=== PATIENT | female | born 1945 | race Caucasian/White ===

== ENCOUNTER 2020-11-27 15:04 | Inpatient (IN) | payer MEDICARE ==
[2020-11-27] VITALS (8 sets, daily range): BP systolic 96–117; BP diastolic 58–75
[~2020-11-27] VITALS: Ht 154.9 cm; Wt 68.1 kg
[2020-11-27] MEDS ORDERED: SODIUM CHLORIDE 0.9% 500ML 500 ML IV ONE (15:45)
[2020-11-27] MEDS ORDERED: ATROPINE SULFATE 1 MG/ML VIAL ONE (15:47)
[2020-11-27 16:40] LABS: BASOPHILS # (AUTO) 0.1 (0.0-0.1); BASOPHILS % 0.8 % (0.0-1.0); EOSINOPHILS % 0.1 % (0.0-6.0); HEMATOCRIT 29.3 % (34.2-44.1); HEMOGLOBIN 9.1 g/dL (12.0-16.0); LYMPHOCYTES % 20.6 % (18.0-39.1); MEAN CORPUSCULAR HEMOGLOBIN 27.3 pg (28-32); MEAN CORPUSCULAR HGB CONC 31.1 g/dL (31-35); MONOCYTES % 10.8 % (4.4-11.3); NEUTROPHILS # (AUTO) 6.5 (2.1-6.9); NEUTROPHILS % 67.3 % (38.7-80.0); PLATELET COUNT 264 x10e3/uL (140-360); RED BLOOD COUNT 3.33 x10e6/uL (3.6-5.1); RED CELL DISTRIBUTION WIDTH 15.3 % (11.7-14.4)
[2020-11-27 16:50] LABS: INR 1.24; PROTHROMBIN TIME 16.4 seconds (11.9-14.5)
[2020-11-27 16:51] LABS: PARTIAL THROMBOPLASTIN TIME 30.2 seconds (23.8-35.5)
[2020-11-27 17:00] LABS: ALBUMIN 3.8 g/dL (3.5-5.0); ALBUMIN/GLOBULIN RATIO 1.1 (0.8-2.0); ANION GAP 17.5 mmol/L (8-16); CALCIUM 9.3 mg/dL (8.4-10.2); CREATININE, SERUM 1.83 mg/dL (0.57-1.11); MAGNESIUM 2.1 MG/DL (1.3-2.1); POTASSIUM 4.5 mmol/L (3.5-5.1)
[2020-11-27] MEDS: FAMOTIDINE 20 MG/2 ML VIAL IV SCH ×2 (17:00→21:14)
[2020-11-27] MEDS ORDERED: ONDANSETRON HCL INJ 2MG/ML 2ML 2 MG/ML VIAL IV PRN (17:00)
[2020-11-27 17:20] LABS: CREATINE KINASE MB 1.5 ng/mL (0-5.0); THYROID STIMULATING HORMONE 3.666 uIU/mL (0.350-4.940)
[2020-11-27] MEDS ORDERED: ATROPINE SULFATE 1 MG/ML VIAL IV PRN (20:15)
[2020-11-27] MEDS ORDERED: ELIQUIS5 MG PO (21:18)
[2020-11-27] MEDS ORDERED: AMIODARONE HCL200 MG PO (21:18)
[2020-11-27] MEDS ORDERED: ATORVASTATIN CA20 MG PO (21:18)
[2020-11-27] MEDS ORDERED: FUROSEMIDE40 MG PO (21:19)
[2020-11-27] MEDS ORDERED: PANTOPRAZOLE SO40 MG PO (21:22)
[2020-11-27] MEDS ORDERED: MAGNESIUM250 MG PO (21:22)
[2020-11-27] MEDS ORDERED: ASPIRIN81 MG PO (21:22)
[2020-11-27] MEDS ORDERED: SPIRONOLACTONE25 MG PO (21:22)
[2020-11-27] MEDS ORDERED: METOPROLOL TART25 MG PO (21:22)
[2020-11-27] MEDS ORDERED: METFORMIN HCL500 MG PO (21:22)
[2020-11-27] MEDS ORDERED: PRESERVISION A1 EACH PO (21:22)
[2020-11-27] MEDS ORDERED: OMEPRAZOLE40 MG PO (21:22)
[2020-11-27] MEDS ORDERED: MELATONIN3 MG PO (21:22)
[2020-11-27 23:24] LABS: CREATINE KINASE MB 2.4 ng/mL (0-5.0)
[2020-11-28] VITALS (26 sets, daily range): BP systolic 86–121; BP diastolic 51–72
[2020-11-28] MEDS ORDERED: HYDROCODONE/APAP 5MG-325MG TAB PO ONE
[2020-11-28 04:48] LABS: BASOPHILS # (AUTO) 0.1 (0.0-0.1); BASOPHILS % 0.8 % (0.0-1.0); EOSINOPHILS % 0.6 % (0.0-6.0); HEMATOCRIT 28.7 % (34.2-44.1); HEMOGLOBIN 9.1 g/dL (12.0-16.0); LYMPHOCYTES # (AUTO) 2.6 (1.0-3.2); LYMPHOCYTES % 35.8 % (18.0-39.1); MEAN CORPUSCULAR HEMOGLOBIN 27.4 pg (28-32); MEAN CORPUSCULAR HGB CONC 31.7 g/dL (31-35); MEAN CORPUSCULAR VOLUME 86.4 fL (81-99); MONOCYTES % 13.8 % (4.4-11.3); NEUTROPHILS # (AUTO) 3.6 (2.1-6.9); NEUTROPHILS % 48.7 % (38.7-80.0); PLATELET COUNT 218 x10e3/uL (140-360); RED BLOOD COUNT 3.32 x10e6/uL (3.6-5.1)
[2020-11-28 05:16] LABS: ALBUMIN 3.6 g/dL (3.5-5.0); ANION GAP 17.5 mmol/L (8-16); CALCIUM 9.2 mg/dL (8.4-10.2); CHOL/HDL RATIO 4.2 (3.0-3.6); CREATININE, SERUM 1.62 mg/dL (0.57-1.11); POTASSIUM 4.5 mmol/L (3.5-5.1)
[2020-11-28] MEDS: FAMOTIDINE 20 MG/2 ML VIAL IV SCH ×3 (06:00→21:00)
[2020-11-28 06:48] LABS: CREATINE KINASE MB 2.7 ng/mL (0-5.0)
[2020-11-28] MEDS ORDERED: FUROSEMIDE INJ 10 MG/ML 4 ML VIAL IV SCH (09:00)
[2020-11-28] MEDS ORDERED: PANTOPRAZOLE SOD 40 MG TABEC PO SCH (09:00)
[2020-11-28] MEDS ORDERED: ATROPINE SULFATE 1 MG/ML VIAL IV ONE (09:20)
[2020-11-28] MEDS: ASPIRIN 81 MG CHEW TAB PO SCH (09:28)
[2020-11-28] MEDS ORDERED: SODIUM CHLORIDE 0.9% 250ML 250 ML IV ONE (13:30)
[2020-11-28] MEDS: INSULIN LISPRO 100 UNIT/1 ML 3ML VIAL SQ SCH (20:49)
[2020-11-28] MEDS: ATORVASTATIN 40 MG TAB PO SCH (21:36)
[2020-11-28] MEDS: MELATONIN 5 MG TABLET PO SCH (21:37)
[2020-11-28] MEDS: ACETAMINOPHEN 325 MG TAB PO PRN (22:55)
[2020-11-29] VITALS (24 sets, daily range): BP systolic 94–128; BP diastolic 56–88
[2020-11-29] MEDS ORDERED: ATROPINE SULFATE 0.1 MG/ML 10ML SYR ONE (01:01)
[2020-11-29 06:33] LABS: BASOPHILS % 0.6 % (0.0-1.0); EOSINOPHILS # (AUTO) 0.2 (0.0-0.4); EOSINOPHILS % 2.1 % (0.0-6.0); HEMATOCRIT 30.3 % (34.2-44.1); HEMOGLOBIN 9.3 g/dL (12.0-16.0); LYMPHOCYTES # (AUTO) 1.7 (1.0-3.2); LYMPHOCYTES % 24.7 % (18.0-39.1); MEAN CORPUSCULAR HEMOGLOBIN 27.9 pg (28-32); MEAN CORPUSCULAR HGB CONC 30.7 g/dL (31-35); MONOCYTES # (AUTO) 1.1 (0.2-0.8); NEUTROPHILS % 57.3 % (38.7-80.0); PLATELET COUNT 189 x10e3/uL (140-360); RED BLOOD COUNT 3.33 x10e6/uL (3.6-5.1); RED CELL DISTRIBUTION WIDTH 15.1 % (11.7-14.4)
[2020-11-29] MEDS: INSULIN LISPRO 100 UNIT/1 ML 3ML VIAL SQ SCH ×4 (07:30→21:00)
[2020-11-29 07:39] LABS: ALBUMIN 3.5 g/dL (3.5-5.0); ALBUMIN/GLOBULIN RATIO 1.1 (0.8-2.0); ANION GAP 15.2 mmol/L (8-16); CREATININE, SERUM 1.35 mg/dL (0.57-1.11); POTASSIUM 4.2 mmol/L (3.5-5.1)
[2020-11-29] MEDS ORDERED: FENTANYL CITRATE/PF 100MCG/2 ML INJ ONE (08:08)
[2020-11-29] MEDS ORDERED: MIDAZOLAM HCL 2 MG/2 ML VIAL ONE ×2 (08:08→09:35)
[2020-11-29] MEDS ORDERED: HEPARIN SOD (PORCINE) 1000 UNIT/ML 30ML ONE (08:08)
[2020-11-29] MEDS ORDERED: NITROGLYCERIN/D5W 200 MCG/ML 250 ML ONE (08:09)
[2020-11-29] MEDS ORDERED: LIDOCAINE HCL 2% LOCAL 20 ML VIAL ONE (08:09)
[2020-11-29] MEDS ORDERED: IOPAMIDOL 370 MG/ML 200 ML INFUS..BTL INJ ONE ×3 (08:09→09:42)
[2020-11-29] MEDS ORDERED: HEPARIN SOD/SOD CHLORIDE 1,000 ML ONE (08:09)
[2020-11-29] MEDS ORDERED: SODIUM CHLORIDE 0.9% 1000ML 1,000 ML ONE ×2 (08:09→08:43)
[2020-11-29] MEDS ORDERED: LIDOCAINE 1% W/EPINEPHRINE 20 ML VIAL ONE (08:42)
[2020-11-29] MEDS ORDERED: SODIUM CHLORIDE 0.9% 500ML 0 ML ONE (08:43)
[2020-11-29] MEDS ORDERED: VANCOMYCIN 1GM/NS 250 ML 0 ML ONE (08:43)
[2020-11-29] MEDS ORDERED: DIPHENHYDRAMINE HCL INJ 50 MG/ML VIAL ONE (08:45)
[2020-11-29] MEDS ORDERED: METHYLPREDNISOLONE SOD SUCC 125 MG/2ML VIAL ONE (08:45)
[2020-11-29] MEDS: FAMOTIDINE 20 MG/2 ML VIAL IV SCH ×2 (12:02→21:09)
[2020-11-29] MEDS ORDERED: SALINE 0.65% NAS SOLN 1 SPRAY BTL PRN (15:30)
[2020-11-29] MEDS ORDERED: ALPRAZOLAM 0.25 MG TAB PO PRN (15:30)
[2020-11-29] MEDS: ASPIRIN 81 MG CHEW TAB PO SCH (16:00)
[2020-11-29] MEDS: ATORVASTATIN 40 MG TAB PO SCH (21:09)
[2020-11-29] MEDS: MELATONIN 5 MG TABLET PO SCH (21:09)
[2020-11-30] VITALS (24 sets, daily range): BP systolic 86–140; BP diastolic 54–89
[2020-11-30 04:52] LABS: BASOPHILS % 0.2 % (0.0-1.0); HEMATOCRIT 25.1 % (34.2-44.1); HEMOGLOBIN 7.9 g/dL (12.0-16.0); LYMPHOCYTES # (AUTO) 0.7 (1.0-3.2); MEAN CORPUSCULAR HEMOGLOBIN 27.6 pg (28-32); MEAN CORPUSCULAR HGB CONC 31.5 g/dL (31-35); MEAN CORPUSCULAR VOLUME 87.8 fL (81-99); MONOCYTES # (AUTO) 0.7 (0.2-0.8); MONOCYTES % 12.6 % (4.4-11.3); NEUTROPHILS # (AUTO) 3.9 (2.1-6.9); PLATELET COUNT 152 x10e3/uL (140-360); RED BLOOD COUNT 2.86 x10e6/uL (3.6-5.1); RED CELL DISTRIBUTION WIDTH 14.8 % (11.7-14.4)
[2020-11-30 05:14] LABS: CALCIUM 8.8 mg/dL (8.4-10.2); CREATININE, SERUM 1.41 mg/dL (0.57-1.11)
[2020-11-30] MEDS: INSULIN LISPRO 100 UNIT/1 ML 3ML VIAL SQ SCH ×4 (07:07→20:52)
[2020-11-30] MEDS: FAMOTIDINE 20 MG/2 ML VIAL IV SCH ×2 (08:23→20:33)
[2020-11-30] MEDS: ASPIRIN 81 MG CHEW TAB PO SCH (08:24)
[2020-11-30] MEDS ORDERED: GENTAMICIN SULFATE 40 MG/ML 2 ML VIAL ONE (15:46)
[2020-11-30] MEDS ORDERED: MIDAZOLAM HCL 2 MG/2 ML VIAL ONE ×2 (15:46→17:44)
[2020-11-30] MEDS ORDERED: LIDOCAINE HCL 2% LOCAL 20 ML VIAL ONE (15:47)
[2020-11-30] MEDS ORDERED: SODIUM CHLORIDE 0.9% 500ML 500 ML ONE (15:47)
[2020-11-30] MEDS ORDERED: FENTANYL CITRATE/PF 100MCG/2 ML INJ ONE (15:47)
[2020-11-30] MEDS ORDERED: SODIUM CHLORIDE 0.9% 1000ML 2,000 ML ONE (15:47)
[2020-11-30] MEDS ORDERED: VANCOMYCIN 1GM/NS 250 ML 250 ML ONE ×2 (16:57→17:48)
[2020-11-30] MEDS: MELATONIN 5 MG TABLET PO SCH (20:33)
[2020-11-30] MEDS: ATORVASTATIN 40 MG TAB PO SCH (20:33)
[2020-12-01] VITALS (12 sets, daily range): BP systolic 99–125; BP diastolic 66–77
[2020-12-01] MEDS: ACETAMINOPHEN 325 MG TAB PO PRN (03:33)
[2020-12-01 04:50] LABS: BASOPHILS % 0.5 % (0.0-1.0); EOSINOPHILS # (AUTO) 0.1 (0.0-0.4); EOSINOPHILS % 1.2 % (0.0-6.0); HEMATOCRIT 24.6 % (34.2-44.1); HEMOGLOBIN 7.6 g/dL (12.0-16.0); LYMPHOCYTES # (AUTO) 1.2 (1.0-3.2); LYMPHOCYTES % 16.5 % (18.0-39.1); MEAN CORPUSCULAR HEMOGLOBIN 27.2 pg (28-32); MEAN CORPUSCULAR HGB CONC 30.9 g/dL (31-35); MEAN CORPUSCULAR VOLUME 88.2 fL (81-99); MONOCYTES # (AUTO) 0.7 (0.2-0.8); MONOCYTES % 9.5 % (4.4-11.3); NEUTROPHILS # (AUTO) 5.2 (2.1-6.9); NEUTROPHILS % 71.9 % (38.7-80.0); PLATELET COUNT 173 x10e3/uL (140-360); RED BLOOD COUNT 2.79 x10e6/uL (3.6-5.1); RED CELL DISTRIBUTION WIDTH 15.1 % (11.7-14.4)
[2020-12-01 05:14] LABS: ANION GAP 13.2 mmol/L (8-16); CALCIUM 8.7 mg/dL (8.4-10.2); CREATININE, SERUM 1.12 mg/dL (0.57-1.11); POTASSIUM 4.2 mmol/L (3.5-5.1)
[2020-12-01] MEDS: INSULIN LISPRO 100 UNIT/1 ML 3ML VIAL SQ SCH ×3 (07:02→16:01)
[2020-12-01] MEDS: ASPIRIN 81 MG CHEW TAB PO SCH (09:56)
[2020-12-01] MEDS: FAMOTIDINE 20 MG/2 ML VIAL IV SCH (09:56)
== END 2020-12-01 16:39 | disposition home or self-care (01) | DRG 242 ==
LOC: ER 15:13 → ERHOLD 17:00 → ICU 18:29
PROVIDERS: ADMIT Internal Medicine; ATTEND Internal Medicine
PROC: 4A023N7 Measurement of Cardiac Sampling and Pressure, Left Heart, Percutaneous Approach (ICD-10-PCS; 2020-11-29)
PROC: B2121ZZ Fluoroscopy of Single Coronary Artery Bypass Graft using Low Osmolar Contrast (ICD-10-PCS; 2020-11-29)
PROC: B2111ZZ Fluoroscopy of Multiple Coronary Arteries using Low Osmolar Contrast (ICD-10-PCS; 2020-11-29)
PROC: B2151ZZ Fluoroscopy of Left Heart using Low Osmolar Contrast (ICD-10-PCS; 2020-11-29)
PROC: 0JH606Z Insertion of Pacemaker, Dual Chamber into Chest Subcutaneous Tissue and Fascia, Open Approach (ICD-10-PCS; principal; 2020-11-30)
PROC: 02H63JZ Insertion of Pacemaker Lead into Right Atrium, Percutaneous Approach (ICD-10-PCS; 2020-11-30)
PROC: 02HK3JZ Insertion of Pacemaker Lead into Right Ventricle, Percutaneous Approach (ICD-10-PCS; 2020-11-30)
DX: I49.5 Sick sinus syndrome (principal); I50.33 Acute on chronic diastolic (congestive) heart failure; I13.0 Hypertensive heart and chronic kidney disease with heart failure and stage 1 through stage 4 chronic kidney disease, or unspecified chronic kidney disease; R00.1 Bradycardia, unspecified; I48.0 Paroxysmal atrial fibrillation; Z79.01 Long term (current) use of anticoagulants; Z90.49 Acquired absence of other specified parts of digestive tract; I25.10 Atherosclerotic heart disease of native coronary artery without angina pectoris; Z95.1 Presence of aortocoronary bypass graft; Z95.2 Presence of prosthetic heart valve; Z82.49 Family history of ischemic heart disease and other diseases of the circulatory system; Z79.84 Long term (current) use of oral hypoglycemic drugs; E78.5 Hyperlipidemia, unspecified; R10.9 Unspecified abdominal pain; E11.22 Type 2 diabetes mellitus with diabetic chronic kidney disease; N18.9 Chronic kidney disease, unspecified; I25.82 Chronic total occlusion of coronary artery; Z91.041 Radiographic dye allergy status
CPT/HCPCS: 33208; 36415; 71045; 76700; 80048; 80053; 80061; 82550; 82553; 82948; 83735; 83880; 84443; 84484; 85025; 85610; 85730; 93005; 93306; 93307; 93455; 99152; 99153; 99251; 99284; C1725; C1757; C1769; C1785; C1887; C1898; J0461; J1200; J1580; J1644; J2001; J2250; J2405; J2930; J3010; J3370; J7030; J7040; J7050; Q9967; U0002